=== PATIENT | male | born 1955 | race Caucasian/White ===

== ENCOUNTER 2016-09-05 14:48 | Emergency (ER) | payer OTHER ==
[~2016-09-05] VITALS: Ht 185.4 cm; Wt 107.0 kg
[~2016-09-05 14:48] MED LIST: AUGMENTIN875 MG PO; CELEXA20 MG PO; CIPRO500 MG PO; FLOMAX0.4 MG PO; HYDROCHLOROTHIA25 MG PO; METAXALONE800 MG PO; NEXIUM40 MG PO; PERCOCET 5/31 TABLET PO; PERCOCET 7.51 TABLET PO; PRAVACHOL20 MG PO; PROMETHAZINE HC25 M1 PO; REGLAN10 MG PO
[2016-09-05 16:04] LABS: HEMATOCRIT 42.3 % (38.0-50.0); MCH 30.5 PG (29.0-34.0); MCHC 35.9 G/DL (30.0-36.0); MCV 84.9 FL (86-99); MEAN PLAT.VOLUME 9.6 uM^3 (9.0-12.4); PLATELET COUNT 204 K/uL (156-360); RBC DIS.WIDTH-CV 13.4 % (11.8-14.6); RBC DIS.WIDTH-SD 40.7 % (39-53); RED BLOOD COUNT 4.98 M/uL (4.00-5.50); WHITE BLOOD COUNT 9.8 K/uL (4.1-10.2)
[2016-09-05 16:12] LABS: CHLORIDE 107 mEq/L (99-109); POTASSIUM 3.9 mEq/L (3.7-5.4); SODIUM 140 mEq/L (136-147)
[2016-09-05 16:15] LABS: GLUCOSE 96 mg/dL (70-99)
[2016-09-05 16:16] LABS: ANION GAP 10 MEQ/L (2-14)
[2016-09-05 16:17] LABS: TOTAL BILIRUBIN 0.4 mg/dL (0.0-1.0)
[2016-09-05 16:18] LABS: ALKALINE PHOSPHATASE 63 IU/L (3-129); GFR ESTIMATE (CALCULATED) > 59 mL/min/
[2016-09-05 16:19] LABS: UREA NITROGEN (BUN) 17 mg/dL (9-23)
[2016-09-05 16:22] LABS: LIPASE 17 U/L (1.0-51.0)
[2016-09-05 16:58] LABS: BILIRUBIN NEGATIVE; BLOOD NEGATIVE; GLUCOSE (STRIP) NEGATIVE; KETONES NEGATIVE; LEUKOCYTES NEGATIVE; NITRITE NEGATIVE; PROTEIN (STRIP) NEGATIVE; SPECIFIC GRAVITY 1.021 (1.000-1.030); UROBILINOGEN 0.2 MG/DL (0.2-1.0)
[2016-09-05 17:00] LABS: ADD MIUA? NO; COLOR YELLOW ((YELLOW))
[2016-09-05] MEDS ORDERED: FLOMAX0.4 MG PO (17:19)
[2016-09-05] MEDS ORDERED: NORCO 5/3251 TABLET PO (17:19)
[2016-09-05] MEDS ORDERED: ZOFRAN ODT4 MG PO (17:19)
[2016-09-05 17:37] VITALS: BP 144/90
== END 2016-09-05 17:39 | disposition home or self-care (01) ==
LOC: EME 14:48 → RME 14:48
PROVIDERS: Nurse Practitioner Family
DX: N20.0 Calculus of kidney (principal); R11.0 Nausea; Z87.442 Personal history of urinary calculi
CPT/HCPCS: 74176; 80053; 81003; 83690; 85027; 99281; 99285; J1885; J2270; J2405; J7030

== ENCOUNTER 2016-09-08 15:05 | Emergency (ER) | payer OTHER ==
[~2016-09-08] VITALS: Ht 185.4 cm; Wt 108.8 kg
[~2016-09-08 15:05] MED LIST changes: +NORCO 5/3251 TABLET PO; +ZOFRAN ODT4 MG PO
[2016-09-08] MEDS ORDERED: VITAMIN D5000 UNI1 PO (15:21)
[2016-09-08 15:46] LABS: HEMATOCRIT 44.3 % (38.0-50.0); MCHC 35.2 G/DL (30.0-36.0); MCV 85.2 FL (86-99); MEAN PLAT.VOLUME 9.6 uM^3 (9.0-12.4); PLATELET COUNT 217 K/uL (156-360); RBC DIS.WIDTH-CV 13.2 % (11.8-14.6); RBC DIS.WIDTH-SD 40.7 % (39-53); WHITE BLOOD COUNT 11.1 K/uL (4.1-10.2)
[2016-09-08 15:59] LABS: CHLORIDE 100 mEq/L (99-109); POTASSIUM 3.7 mEq/L (3.7-5.4); SODIUM 137 mEq/L (136-147)
[2016-09-08 16:01] LABS: GLUCOSE 98 mg/dL (70-99)
[2016-09-08 16:03] LABS: ANION GAP 12 MEQ/L (2-14)
[2016-09-08 16:05] LABS: ALKALINE PHOSPHATASE 71 IU/L (3-129); GFR ESTIMATE (CALCULATED) > 59 mL/min/
[2016-09-08 16:06] LABS: UREA NITROGEN (BUN) 11 mg/dL (9-23)
[2016-09-08 16:08] LABS: LIPASE 7 U/L (1.0-51.0); TOTAL BILIRUBIN 0.7 mg/dL (0.0-1.0)
[2016-09-08 16:56] LABS: ADD MIUA? YES; BILIRUBIN NEGATIVE; BLOOD LARGE; COLOR YELLOW ((YELLOW)); GLUCOSE (STRIP) NEGATIVE; KETONES NEGATIVE; LEUKOCYTES TRACE; NITRITE NEGATIVE; PROTEIN (STRIP) 30; SPECIFIC GRAVITY 1.015 (1.000-1.030); UROBILINOGEN 0.2 MG/DL (0.2-1.0)
[2016-09-08 17:03] LABS: BACTERIA NONE SEEN /HPF; EPITHELIAL CELLS RARE /HPF; HYALINE CASTS 0-5 /LPF; MUCUS TRACE /LPF; RED BLOOD CELLS TNTC /HPF (0-5); WHITE BLOOD CELLS 0-5 /HPF (0-5)
[2016-09-08] MEDS ORDERED: NORCO 5/3251 TABLET PO (18:39)
[2016-09-08] MEDS ORDERED: CIPRO500 MG PO (18:39)
[2016-09-08 18:48] VITALS: BP 123/86
== END 2016-09-08 18:49 | disposition home or self-care (01) ==
LOC: EME 15:05
PROVIDERS: Nurse Practitioner Family
DX: N20.0 Calculus of kidney (principal); N39.0 Urinary tract infection, site not specified; Z87.442 Personal history of urinary calculi
CPT/HCPCS: 74177; 80053; 81003; 83690; 85027; 99281; 99285; J1200; J2270; J2405; J7030

== ENCOUNTER 2016-09-26 17:17 | Observation (INO) | payer OTHER ==
[~2016-09-26] VITALS: Ht 185.4 cm; Wt 105.1 kg
[~2016-09-26 17:17] MED LIST changes: +VITAMIN D5000 UNI1 PO
[2016-09-26 18:24] LABS: EOSINOPHIL (%) 1.8 % (0-5); EOSINOPHIL COUNT 0.2 K/uL (0-0.3); HEMATOCRIT 44.7 % (38.0-50.0); IMMATURE GRANULOCYTE (%) 0.5 % (0.0-0.7); INSTRUMENT ABS NEUTROPHIL CT 6.3 K/uL; LYMPHOCYTE COUNT 1.3 K/uL (1.0-2.8); MCH 29.4 PG (29.0-34.0); MCHC 33.8 G/DL (30.0-36.0); MEAN PLAT.VOLUME 9.7 uM^3 (9.0-12.4); MONOCYTE (%) 7.6 % (3-12); MONOCYTE COUNT 0.6 K/uL (0-0.8); NEUTROPHIL (%) 74.8 % (45-76); NEUTROPHIL COUNT 6.3 K/uL (1.8-6.4); PLATELET COUNT 252 K/uL (156-360); RBC DIS.WIDTH-CV 13.1 % (11.8-14.6); RBC DIS.WIDTH-SD 41.3 % (39-53); RED BLOOD COUNT 5.14 M/uL (4.00-5.50); WHITE BLOOD COUNT 8.4 K/uL (4.1-10.2)
[2016-09-26 18:36] LABS: INTER. NORMALIZED RATIO 1.1; PROTHROMBIN TIME 10.7 (9.2-11.2); PTT 26.7 (25-32)
[2016-09-26 18:37] LABS: CHLORIDE 107 mEq/L (99-109); SODIUM 141 mEq/L (136-147)
[2016-09-26 18:39] LABS: GLUCOSE 97 mg/dL (70-99)
[2016-09-26 18:40] LABS: ANION GAP 10 MEQ/L (2-14)
[2016-09-26 18:43] LABS: GFR ESTIMATE (CALCULATED) > 59 mL/min/
[2016-09-26 18:44] LABS: UREA NITROGEN (BUN) 20 mg/dL (9-23)
[2016-09-26 18:45] LABS: TROP-I INTERPRETATION NEGATIVE; TROPONIN-I 0.01 ng/mL (0.0-0.30)
[2016-09-26] MEDS ORDERED: FIBER500 MG PO (19:11)
[2016-09-26] MEDS ORDERED: LITE COAT ASPI325 M1 PO (19:11)
[2016-09-26] MEDS ORDERED: B COMPLETE1 EACH PO (19:11)
[2016-09-26] MEDS ORDERED: PRAVACHOL40 MG PO (19:11)
[2016-09-26] MEDS ORDERED: NIZORAL 2% CREA15 GM TP (19:12)
[2016-09-26] MEDS ORDERED: PROAIR HFA8.5 GM IH (19:12)
[2016-09-26] MEDS ORDERED: CLINDAMYCIN PHO60 M1 TP (19:13)
[2016-09-26] MEDS ORDERED: ZOFRAN ODT4 MG PO (19:13)
[2016-09-26 20:39] LABS: TROP-I INTERPRETATION NEGATIVE; TROPONIN-I 0.01 ng/mL (0.0-0.30)
[2016-09-26 21:13] VITALS: BP 160/100
[2016-09-26 23:45] VITALS: BP 140/82
[2016-09-27 00:45] LABS: TROP-I INTERPRETATION NEGATIVE; TROPONIN-I < 0.01 ng/mL (0.0-0.30)
[2016-09-27 03:43] VITALS: BP 126/80
[2016-09-27 07:10] LABS: TROP-I INTERPRETATION NEGATIVE; TROPONIN-I 0.01 ng/mL (0.0-0.30)
[2016-09-27 08:15] VITALS: BP 137/86
== END 2016-09-27 10:23 | disposition home or self-care (01) ==
LOC: EME 17:17 → EDOF 19:38 → 5WEST 19:38
PROVIDERS: Emergency Medicine; Physician Assistant
DX: R07.89 Other chest pain (principal); K21.9 Gastro-esophageal reflux disease without esophagitis
CPT/HCPCS: 71020; 80048; 84484; 85025; 85610; 85730; 93005; 99281; 99285; G0378; J1650; J2405